=== PATIENT | male | born 2000 | race African-American/Black ===

== ENCOUNTER 2021-11-11 07:25 | Emergency (ER) | payer OTHER ==
[~2021-11-11] VITALS: Ht 170.2 cm; Wt 115.7 kg
[2021-11-11 10:16] LABS: GC DNA AMPLIFICATION NEGATIVE (NEGATIVE)
[2021-11-11 10:54] VITALS: BP 151/81
== END 2021-11-11 11:14 | disposition home or self-care (01) ==
LOC: M ED 09:06
DX: N48.29 Other inflammatory disorders of penis (principal); R10.2 Pelvic and perineal pain; F32.2 Major depressive disorder, single episode, severe without psychotic features